=== PATIENT | male | born 1965 | race Two or more races ===

== ENCOUNTER 2024-12-31 06:12 | Inpatient (IN) | payer BC ==
[2024-12-31] VITALS (7 sets, daily range): BP systolic 110–124; BP diastolic 57–75; PULSE 59–85; RESP 17–19; TEMP 97.4–98.1; O2SAT 92–100
[~2024-12-31] VITALS: Ht 180.3 cm; Wt 114.8 kg
[~2024-12-31 06:12] MED LIST: ATOR40TA52 PO; FENO160T PO; SEMA2INJ3 SC
[2024-12-31] MEDS ORDERED: ceFAZolin 2 GM/D5W100ml 100 ML IV ONE (06:25)
[2024-12-31] MEDS ORDERED: DexAMETHasone SOD PHOS 4 MG/1ML SDV INJ ONE (06:43)
[2024-12-31] MEDS: ACETAMINOPHEN IV 1000 MG/100ML (10MG/ML) IV ONE (06:50)
[2024-12-31] MEDS: GABAPENTIN 400 MG CAP PO ONE (06:50)
[2024-12-31] MEDS: CELECOXIB 100 MG CAP PO ONE (06:50)
[2024-12-31] MEDS ORDERED: DexAMETHasone SOD PHOS 10MG/1ML VIAL INJ ONE (06:54)
[2024-12-31] MEDS ORDERED: PROPOFOL 10 MG/ML 20 ML IV ONE ×3 (06:54→08:57)
[2024-12-31] MEDS ORDERED: EPINEPHrine HCL 1 MG/1 ML AMP ONE (06:54)
[2024-12-31] MEDS ORDERED: KETOROLAC TROMETH 30 MG/ML 1ML VIAL ONE ×2 (06:54→06:58)
[2024-12-31] MEDS ORDERED: GLYCOPYRROLATE 0.2 MG/ML 1ML VIAL ONE (06:54)
[2024-12-31] MEDS ORDERED: LIDOCAINE 1% INJ PF 5ML AMP ONE (06:54)
[2024-12-31] MEDS ORDERED: ONDANSETRON HCL 4 MG/2 ML VIAL ONE (06:54)
[2024-12-31] MEDS ORDERED: BUPIVACAINE W/ EPINEPH 0.5% INJ 50ML MDV IJ ONE (06:56)
[2024-12-31] MEDS ORDERED: KETAMINE 50mg/ML 1ml syringe ONE (06:56)
[2024-12-31] MEDS ORDERED: fentaNYL CITRATE 100 MCG/2 ML VL ONE (06:56)
[2024-12-31] MEDS ORDERED: VANCOMYCIN HCL 1000 MG VL ONE (06:58)
[2024-12-31] MEDS ORDERED: TRANEXAMIC ACID 20 ML ONE (06:59)
[2024-12-31] MEDS ORDERED: MORPHINE SULF PF 5 MG/10 ML VIAL ONE (07:00)
[2024-12-31] MEDS ORDERED: CEFEPIME 1GM/ 50ML 50 ML IV ONE (07:20)
[2024-12-31] MEDS ORDERED: LIDOCAINE HCL 2% TOP JELLY 5ML TOP ONE (07:48)
[2024-12-31] MEDS ORDERED: ROPIVACAINE 0.5% (5MG/ML) 20ML AMPULE IJ ONE (08:14)
[2024-12-31] MEDS ORDERED: ePHEDrine SULFATE 50 MG/ML AMP ONE (08:18)
[2024-12-31] MEDS ORDERED: oxyCODONE HCL 5MG TAB PO PRN ×2 (09:15→09:45)
[2024-12-31] MEDS ORDERED: ACETAMINOPHEN 325 MG TAB PO PRN (09:15)
--- NOTE | 2024-12-31 09:19 | DVHOP2 ---
Operative Report - 2 Report Details Date: 12/31/24 Preop Diagnosis: Left knee posttraumatic degenerative arthritis Postop Diagnosis: Same Surgeon: Kendall Hayes MD [place] Man: Michael ESCOTO Anesthesiologist: Delonte Harrison CRNA Anesthesia: General, Local, Regional Drains: Prevena closed wound suction Implant: DonJoy size 10 femur PS, size 10 tibial base plate, size 11 polyethylene Consent: The patient was informed of the risks and benefits of the procedure. These include but are not limited to complications of anesthesia, postoperative infection, incomplete relief of symptoms, recurrence of symptoms, damage to blood vessels, nerves and tendons, deep venous thrombosis, pulmonary embolism and possible need for repeat surgery in the future. Complications: None Estimated Blood Loss: 50 cc Fluids: See anesthesia record Findings: Denuded cartilage with eburnated bone and osteophytes Indications for Surgery: Left knee posttraumatic degenerative arthritis with severe pain and functional impairment despite nonoperative management Name of Procedure Performed Left total knee arthroplasty Procedure Details Procedure Details: The patient was brought to the operating room and placed on the table in the supine position after being given spinal anesthetic with adequate analgesia obtained. Surgical timeout was performed verifying patient, laterality and pr ocedure Preop patient received IV cefepime IV Ancef and IV tranexamic acid. Tourniquet was applied to the lower extremity. Extremity was elevated, exsanguinated Esmarch, and tourniquet inflated. Lower extremity was prepped and draped in sterile fashion. Midline incision was made followed by medial arthrotomy. I exposed the anterior medial and lateral tibial plateau and the a nterior distal femur. Bovie and aqua mantis were used for hemostasis. I excised the anterior meniscal tissue with Bovie. I excised a portion of the fat pad with Bovie. The patella was everted and the knee flexed. I drilled the distal femur and suctioned the hole to reduce the risk of fat emboli. I inserted intramedullary guide with 5 degree valgus setting. I pinned the distal femoral cutting block anteriorly. Intramedullary cristiano was removed. Distal femoral cut was made and the block removed. I brought my attention to the tibia setting up the external cutting jig for the tibia paying attention to slope, rotation and varus valgus alignment. I set the depth and pinned the block. I used the external alignment cristiano to aid in checking alignment. Bone cut was made and bone removed releasing soft tissue attachments with Bovie. Cutting block removed. I then checked the extension gap and deemed adequate and removed the femur and tibia pins. I flexed the knee and applied the femoral sizing guide to the femur. I checked the size and external rotation setting at 90 degrees to [place] line and checking the epicondylar axis. I drilled the holes then removed the sizing guide. I then tapped on the 4 in 1 cutting block and checked with the [place] wing anteriorly to make sure that I would not notch then pinned the block. Cuts were made and the block and pins were removed. Bone was r emoved with curved osteotome. I used a rongeur to remove any remaining osteophytes at the femur and tibia. I then used a [employer] to open up the back alternating between the medial and lateral side. Any remaining meniscal tissue was excised with scalpel. I used curved osteotome, curette and rongeur to remove any posterior osteophytes. I prophylactically coagulated with aqua mantis. I then tapped on the template for the box cut and pinned it. Box cut was made and bone removed. Template and pin removed. I then tapped on the femoral trial. I then brought my attention back to the tibia sizing it. I used the external alignment cristiano to make sure that rotation and alignment were good. I made a Bovie ronald at the tibial tray ronald identifying rotation for later use. The patella tracked nicely without thumb pressure. I removed the trials. I pinned the tray and used the reamer and keel punch. The implants were brought into the field while bone preparation was started. I used both normal saline irrigation to prepare the bone. Once cement was ready I applied cement to the tibial implant and tibial bone tapped it on and removed excess cement in usual fashion. In similar fashion I tapped on the femoral implant. I inserted the trial polyethylene and brought the knee into 30 degrees flexion. I irrigated with xperience irrigant. Once cement cured, I checked stability and range of motion as well as patella tracking. I tested various polyethylene trials. tourniquet was released and hemostasis maintained with aqua mantis. I inserted the polyethylene and again checked stability. I used a 2 grams of vancomycin half of which was placed deep and half superficial. I repaired the extensor mechanism with the knee in flexion with #1 Ethibond interrupted [id number]. Deep subcutaneous tissue was closed with 0 Vicryl. Superficial subcutaneous tissue was closed with 2-0 vicryl interrupted. Skin was closed with george. I then applied the Prevena closed wound suction. Patient tolerated the procedure well and was brought to recovery room in stable condition. Condition Stable Disposition Still a Patient KENDALL HAYES MD Dec 31, 2024 09:19
[2024-12-31] MEDS ORDERED: fentaNYL CITRATE 100 MCG/2 ML VL IV PRN (09:45)
[2024-12-31] MEDS ORDERED: HYDROmorphone HCL 2 MG/ML VL/or syr IV PRN (09:45)
[2024-12-31] MEDS ORDERED: ePHEDrine SULFATE 50 MG/ML AMP IV PRN (09:45)
[2024-12-31] MEDS ORDERED: hydrALAZINE HCL 20 MG/ML VL IV PRN (09:45)
[2024-12-31] MEDS ORDERED: ONDANSETRON HCL 4 MG/2 ML VIAL IV PRN (09:45)
[2024-12-31] MEDS ORDERED: NALOXONE HCL 0.4 MG/ML VIAL IV PRN (09:45)
[2024-12-31] MEDS ORDERED: FLUMAZENIL 0.1 MG/ML INJ 10ML MDV IV PRN (09:45)
--- NOTE | 2024-12-31 09:49 | DVH ---
CLINICAL INDICATION: Postop TECHNIQUE: XY L KNEE 3V XRAY Comparison: None FINDINGS/IMPRESSION: : Expected findings post left knee arthroplasty.
[2024-12-31] MEDS: PREGABALIN 25 MG CAP PO SCH (10:00)
[2024-12-31] MEDS: ACETAMINOPHEN 325 MG TAB PO SCH (12:00)
[2024-12-31] MEDS: ceFAZolin 2 GM/D5W50ml 50 ML IV SCH (16:00)
[2024-12-31] MEDS: D5W/LACTATED RINGERS 1,000 ML IV SCH (16:00)
[2024-12-31] MEDS: ATORVASTATIN 20 MG TAB PO SCH (21:55)
[2025-01-01 01:00] VITALS: BP 126/67; PULSE 85; RESP 21; TEMP 98.3; O2SAT 98
[2025-01-01 05:00] VITALS: BP 111/71; PULSE 77; RESP 20; TEMP 98; O2SAT 97
[2025-01-01 07:55] VITALS: BP 135/67; PULSE 67; RESP 18; TEMP 97.3; O2SAT 93
[2025-01-01 08:00] VITALS: PULSE 67; RESP 18; O2SAT 93
[2025-01-01] MEDS: ASPirin 81 mg TAB PO SCH (09:08)
[2025-01-01 11:24] LABS: Basophils # (auto) 0 10 ^3/uL (0-0.2); Basophils % (auto) 0.1 % (0.0-2.0); Eosinophils # (auto) 0 10 ^3/uL (0-0.8); Hematocrit 38.4 % (41.0-53.0); Hemoglobin 13.3 g/dL (13.5-17.5); Lymphocytes # (auto) 1.6 10 ^3/uL (0.4-5.4); Lymphocytes % (auto) 15.2 % (10.0-50.0); Mean Corpuscular Hemoglobin 29.7 pg (28.0-32.0); Mean Corpuscular Hgb Conc. 34.6 g/dL (32.0-36.0); Mean Corpuscular Volume 85.9 fL (80.0-100.0); Monocytes # (auto) 0.9 10 ^3/uL (0-1.3); Neutrophils # (auto) 7.8 10 ^3/uL (1.6-8.6); Neutrophils % (auto) 75.7 % (37.0-80.0); Platelet Count (auto) 313 10^3/uL (140-450); Red Blood Cells 4.47 10^6/uL (4.5-5.90); Red Cell Distribution Width 14.5 % (11.8-14.3); White Blood Cell 10.3 10^3/uL (4.4-10.8)
[2025-01-01] MEDS: oxyCODONE HCL 5MG TAB PO PRN (11:24)
[2025-01-01 11:33] LABS: Chloride 106 mmol/L (98-107); Potassium 4.1 mmol/L (3.5-5.1); Sodium 140 mmol/L (136-145)
[2025-01-01 11:34] LABS: Anion Gap 8 (5-15); Calcium 9.8 mg/dL (8.7-10.4); Carbon Dioxide 26 mmol/L (20-31)
[2025-01-01 11:39] LABS: BUN/Creatinine Ratio 10.8 (10.0-20.0); Blood Urea Nitrogen 12 mg/dL (9-23)
[2025-01-01 11:42] LABS: Glucose 145 mg/dL (74-106)
[2025-01-01 12:03] VITALS: BP 110/71; PULSE 75; RESP 19; TEMP 97.6; O2SAT 94
--- NOTE | 2025-01-01 15:03 | DVHDS2 ---
Discharge Summary Date of Admission Dec 31, 2024 at 09:14 Date of Discharge: Jan 01, 2025 Labs/Diagnostic Data: Laboratory Results Test 01/01/25 10:27 White Blood Count 10.3 10^3/uL (4.4-10.8) Red Blood Count 4.47 10^6/uL (4.5-5.90) Hemoglobin 13.3 g/dL (13.5-17.5) Hematocrit 38.4 % (41.0-53.0) Mean Corpuscular Volume 85.9 fL (80.0-100.0) Mean Corpuscular Hemoglobin 29.7 pg (28.0-32.0) Mean Corpuscular Hemoglobin Concent 34.6 g/dL (32.0-36.0) Red Cell Distribution Width 14.5 % (11.8-14.3) Platelet Count 313 10^3/uL (140-450) Mean Platelet Volume 6.8 fL (6.9-10.8) Neutrophils (%) (Auto) 75.7 % (37.0-80.0) Lymphocytes (%) (Auto) 15.2 % (10.0-50.0) Monocytes (%) (Auto) 9.0 % (0.0-12.0) Eosinophils (%) (Auto) 0.0 % (0.0-7.0) Basophils (%) (Auto) 0.1 % (0.0-2.0) Neutrophils # (Auto) 7.8 10 ^3/uL (1.6-8.6) Lymphocytes # (Auto) 1.6 10 ^3/uL (0.4-5.4) Monocytes # (Auto) 0.9 10 ^3/uL (0-1.3) Eosinophils # (Auto) 0 10 ^3/uL (0-0.8) Basophils # (Auto) 0 10 ^3/uL (0-0.2) Nucleated Red Blood Cells 0.0 % Sodium Level 140 mmol/L (136-145) Potassium Level 4.1 mmol/L (3.5-5.1) Chloride Level 106 mmol/L (98-107) Carbon Dioxide Level 26 mmol/L (20-31) Anion Gap 8 (5-15) Blood Urea Nitrogen 12 mg/dL (9-23) Creatinine 1.11 mg/dL (0.700-1.30) Glomerular Filtration Rate Calc 77 mL/min (>90) BUN/Creatinine Ratio 10.8 (10.0-20.0) Serum Glucose 145 mg/dL (74-106) Calcium Level 9.8 mg/dL (8.7-10.4) Other Laboratory Tests 01/01/25 10:27 Brief Hx & Hospital Course: Patient was brought to the hospital yesterday to undergo a left total knee arthroplasty, he tolerated the procedure well without complications and was kept overnight for postoperative observation. Patient has remained medically stable and denied any overnight events and reports feeling significantly better since surgery. Patient reports that he was able to get up and walk with the help of physical therapy and his walker and was able to get around the nurses station and back to his bed with minimal issues. Patient is otherwise feeling well denying any other complaints or concerns during my evaluation and would like to go home. Condition at Discharge: Stable Final Diagnosis/Problems List left knee degenerative arthritis postop total knee arthroplasty Discharge Disposition: Home Discharge Instruct/Medications Diet: Regular Activity: Light activity Activity comment: WBAT with walker Follow Up/Referral: 10-[address] Hernandez as scheduled Medications: [place] and asa sent to pharmacy Discharge Statement: "Patient was advised to return to the ER or call 911 if any headaches, dizziness, shortness of breath, chest pain, abdominal pain, bleeding, fevers, or worsening of medical condition. Patient was counseled about treatment plan, medications, possible side effects, patientverbalized understanding. All questions were answered to the best of my ability. This discharge took greater then 30 minutes in planning, reviewing documentation, counseling the patient, and discussing with other team members." ASSESSMENT ASSESSMENT Assessment left knee degenerative arthritis postop total knee arthroplasty EDGAR MADDOX Jan 01, 2025 15:03
[2025-01-01 15:04] VITALS: BP 110/71; PULSE 75; RESP 19; TEMP 97.6; O2SAT 94
--- NOTE | 2025-01-01 15:05 | DVHPN2 ---
Progress Note - Dictate Date Seen: Jan 01, 2025 Medical Necessity Reason Pt with a Central, PICC or Fol: No Subjective Patient was lying comfortably in bed during my evaluation reports some postoperative knee pain that is being well managed with the help of pain medication. Patient reports that he was able to get up and walk with the help of physical therapy and his walker and was able to get around the nurses station and back to his bed with only mild pain. Patient is so far satisfied with surgical outcomes and notes that his pain has improved significantly since before surgery. Patient is otherwise feeling well denying any other complaint or concern during my evaluation and would like to go home. vital signs Vital Sign Date Time Temp Pulse Resp B/P (MAP) Pulse Ox O2 Delivery O2 Flow Rate FiO2 01/01/25 12:03 97.6 75 19 110/71 (84) 94 97.6 01/01/25 08:00 Room Air* 0 21 Total Intake and Output 12/31/24 12/31/24 01/01/25 14:59 22:59 06:59 Intake Total 150 ml 240 ml Output Total 400 ml 900 ml Balance -250 ml -660 ml medications Current Medications Medications Dose Ordered Sig/Ashtyn Route Start Time Stop Time Status Last Admin Dose Admin Atorvastatin Calcium 40 mg HS PO 12/31/24 22:00 12/31/24 21:55 40 MG Dextrose/Lactated Ringer's 1,000 ml @ 100 mls/hr Q10H IV 12/31/24 09:15 12/31/24 16:00 100 MLS/HR Acetaminophen 650 mg Q4HP PRN PO 12/31/24 09:15 Acetaminophen 650 mg Q6HR PO 12/31/24 12:00 01/01/25 05:42 650 MG Pregabalin 50 mg BID PO 12/31/24 10:00 01/01/25 09:07 50 MG Oxycodone HCl 5 mg Q4HP PRN PO 12/31/24 09:15 01/01/25 11:24 5 MG Oxycodone HCl 10 mg Q4HP PRN PO 12/31/24 09:15 Aspirin 81 mg BID PO 01/01/25 10:00 01/01/25 09:08 81 MG Oxycodone HCl 10 mg ONCE PRN PO 12/31/24 09:45 objective A&O x4 in no acute distress Knee range of motion grossly limited with pain on movement Prevena dressing clean, dry, intact, and maintaining suction No distal edema or calf tenderness to palpation Neurovascularly intact with cap refill less than 2 seconds laboratory and microbiology Laboratory Tests 01/01/25 10:27 Test 01/01/25 10:27 Range/Units Serum Glucose 145 H 74-106 mg/dL Assessment/Plan Patient to be discharged home and advised to follow up with our office in 10-14 days for his 1st postoperative evaluation. I instructed the patient to remain weight-bearing as tolerated with the assistance of a walker and to maintain his dressing clean, dry, intact, and maintaining suction and to call our office if he has any questions or concerns. Rx sent via our outpatient EMR system. He understood and agreed. Plan discussed with: Patient EDGAR MADDOX Jan 01, 2025 15:05
== END 2025-01-01 16:00 | disposition home health service (06) | DRG 470 ==
LOC: SUR 06:12 → OVERFLOW 09:14 → EAST 10:53
PROVIDERS: ADMIT Orthopaedic Surgery; ATTEND Orthopaedic Surgery
PROC: 0SRD0J9 Replacement of Left Knee Joint with Synthetic Substitute, Cemented, Open Approach (ICD-10-PCS; principal; 2024-12-31 07:18)
DX: M17.12 Unilateral primary osteoarthritis, left knee (principal); Z96.652 Presence of left artificial knee joint
CPT/HCPCS: 36415; 73562; 80048; 85025; 86850; 86900; 86901; 97110; 97116; 97163; G0378; J0131; J0171; J1100; J1885; J2405; J2704